=== PATIENT | male | born 1945 | race American Indian/Alaskan Native ===

== ENCOUNTER 2016-09-15 19:58 | Inpatient (IN) | payer MEDICARE ==
[2016-09-15 21:38] LABS: Basophils % (Auto) 0.8 % (0.0-1.8); Eosinophils % (Auto) 7.2 % (0.0-4.3); Hemoglobin 7.5 gm/dl (11.8-15.2); Mean Corpuscular HGB Conc 31 % (32-34); Mean Corpuscular Hemoglobin 27 pg (28-32); Mean Corpuscular Volume 85 fl (84-94); Platelet Count 287 K/mm3 (140-440); Red Blood Count 2.83 M/mm3 (3.65-5.03); Red Cell Distribution Width 19.1 % (13.2-15.2); White Blood Count 7.9 K/mm3 (4.5-11.0)
[2016-09-15] MEDS ORDERED: ZOFRAN IV ONE (21:39)
[2016-09-15 21:43] LABS: BUN/Creatinine Ratio 4.38; Chloride 91.9 mmol/L (98-107); Potassium 3.6 mmol/L (3.6-5.0)
[2016-09-15 21:49] LABS: INR 0.98 (0.87-1.13)
[2016-09-15 21:50] LABS: Partial Thromboplastin Time 30.5 Sec. (24.2-36.6)
--- NOTE | 2016-09-15 22:14 | Emergency Department Report ---
ED General Adult HPI - General Chief complaint: Weakness Stated complaint: WEAKNESS Time Seen by Provider: 09/15/16 21:07 Source: patient, family, old records reviewed (admission 2013 EGD showed gastritis without bleeding patient received 2 units of PRBCs at that time) Mode of arrival: Wheelchair Limitations: No Limitations - History of Present Illness Initial comments: 71-year-old male with a past medical history of end-stage renal disease on dialysis and multiple other medical problems presents to the hospital with complaints of low H&H. Patient apparently was seen at the ID yesterday and was called to come to the hospital for H&H of 7.2. Per previous medical record review patient has received transfusion in the past. He denies melena, hematochezia, or hematemesis. Patient complains of nausea without reports of vomiting. Compliant with dialysis Monday, Mon, and Monday. Patient is pain free. Dumpcart Driver: Dr. Arce Severity scale (0 -10): 0 - Related Data Home Medications Medication Instructions Recorded Confirmed Last Taken Aspirin [Aspirin BABY CHEW TAB] 81 mg PO QDAY 06/14/13 06/14/13 Unknown Calcitriol [Rocaltrol] 06/14/13 06/14/13 Unknown Ergocalciferol (Vitamin D2) 50,000 unit PO 06/14/13 06/14/13 Unknown Omeprazole [PriLOSEC] 40 mg PO DAILY 06/14/13 06/14/13 Unknown Previous Rx's Medication Instructions Recorded Last Taken Type Calcium Acetate [Phoslo] 667 mg PO TID #90 capsule 07/11/13 Unknown Rx Citalopram [Celexa] 20 mg PO QDAY #30 tablet 07/11/13 Unknown Rx Clopidogrel [Plavix] 75 mg PO QDAY #30 tablet 07/11/13 Unknown Rx Metoprolol [Lopressor TAB] 25 mg PO BID #60 tablet 07/11/13 Unknown Rx Simvastatin [Zocor TAB] 20 mg PO QHS #30 tablet 07/11/13 Unknown Rx Sodium Bicarbonate 650 mg PO BID #60 tablet 07/11/13 Unknown Rx Sucralfate [Carafate] 1 gm PO Q6HR #120 oral.liqd 07/11/13 Unknown Rx hydrALAZINE [Apresoline TAB] 25 mg PO Q12HR #60 tablet 12/19/13 Unknown Rx Insulin Glargine [Lantus] 8 unit SUB-Q QHS #3 ml 05/18/14 Unknown Rx Allergies Allergy/AdvReac Type Severity Reaction Status Date / Time lisinopril Allergy Angioedema Verified 06/14/13 13:57 ED Review of Systems ROS: Stated complaint: WEAKNESS Other details as noted in HPI Comment: All other systems reviewed and negative Other: Constitutional: No fevers chills Eyes: No eye pain visual changes ENT: No ear pain or throat pain Neck: Denies pain Respiratory: Denies cough wheezing shortness of breath Cardiovascular: Denies chest pain, palpitations, syncope GI: Denies abdominal pain, vomiting, diarrhea : Denies dysuria Musculoskeletal: Denies back pain, joint swelling Skin: Denies rash, lesions, erythema Neurologic: Denies headache, numbness, weakness Psychiatric: Denies suicidal ideation, hallucinations ED Past Medical Hx - Past Medical History Previous Medical History?: Yes Hx Hypertension: Yes Hx CVA: Yes Hx Heart Attack/AMI: Yes Hx Congestive Heart Failure: Yes Hx Diabetes: Yes Hx Renal Disease: Yes Hx COPD: Yes (h/o pul hypertension) Hx HIV: No - Surgical History Past Surgical History?: Yes Hx Coronary Stent: Yes Hx Breast Surgery: Yes Additional Surgical History: right below knee amputation - Social History Smoking Status: Never Smoker Substance Use Type: None - Medications Home Medications: Home Medications Medication Instructions Recorded Confirmed Last Taken Type Aspirin [Aspirin BABY CHEW TAB] 81 mg PO QDAY 06/14/13 06/14/13 Unknown History Calcitriol [Rocaltrol] 06/14/13 06/14/13 Unknown History Ergocalciferol (Vitamin D2) 50,000 unit PO 06/14/13 06/14/13 Unknown History Omeprazole [PriLOSEC] 40 mg PO DAILY 06/14/13 06/14/13 Unknown History Calcium Acetate [Phoslo] 667 mg PO TID #90 capsule 07/11/13 Unknown Rx Citalopram [Celexa] 20 mg PO QDAY #30 tablet 07/11/13 Unknown Rx Clopidogrel [Plavix] 75 mg PO QDAY #30 tablet 07/11/13 Unknown Rx Metoprolol [Lopressor TAB] 25 mg PO BID #60 tablet 07/11/13 Unknown Rx Simvastatin [Zocor TAB] 20 mg PO QHS #30 tablet 07/11/13 Unknown Rx Sodium Bicarbonate 650 mg PO BID #60 tablet 07/11/13 Unknown Rx Sucralfate [Carafate] 1 gm PO Q6HR #120 oral.liqd 07/11/13 Unknown Rx hydrALAZINE [Apresoline TAB] 25 mg PO Q12HR #60 tablet 07/11/13 Unknown Rx Insulin Glargine [Lantus] 8 unit SUB-Q QHS #3 ml 05/18/14 Unknown Rx ED Physical Exam - General Limitations: No Limitations - Other Other exam information: General: No limitations, patient is alert in no acute distress Head exam: Atraumatic, normocephalic Eyes exam: Normal appearance, ENT: Moist mucous membrane, normal oropharynx Neck exam: Normal inspection, full range of motion, no meningismus nontender Respiratory exam: Clear to auscultation bilateral, no wheezes, rales, crackles. Left chest wall dialysis access Cardiovascular: Regular rhythm with PVCs Abdomen: Soft, nondistended, and nontender, with normal bowel sounds, no rebound, or guarding Rectal: Guaiac negative brown stool Extremity: Full range of motion, right BKA Back: Normal Inspection, full range of motion, no tenderness Neurologic: Alert, oriented x3, cranial nerves intact, no motor or sensory deficit Psychiatric: normal affect, normal mood Skin: Warm, dry, intact ED Course Vital Signs 09/15/16 09/15/16 20:05 20:25 Temperature 98.5 F 98.5 F Pulse Rate 82 82 Respiratory 20 20 Rate Blood Pressure 137/87 Blood Pressure 137/87 [Right] O2 Sat by Pulse 94 96 Oximetry - Reevaluation(s) Reevaluation #1: 09/15/16 22:25 pt stable in ed. ZOfran ordered for nausea - Consultations Consultation #1: 09/15/16 22:25 Dr Ball nephrology consulted, will arrange for dialysis in hospital ED Medical Decision Making - Lab Data Result diagrams: 09/15/16 21:02 09/15/16 21:02 Lab Results 09/15/16 09/15/16 09/15/16 Range/Units 21:02 21:02 21:02 WBC 7.9 (4.5-11.0) K/mm3 RBC 2.83 L (3.65-5.03) M/mm3 Hgb 7.5 L (11.8-15.2) gm/dl Hct 24.0 L (35.5-45.6) % MCV 85 (84-94) fl MCH 27 L (28-32) pg MCHC 31 L (32-34) % RDW 19.1 H (13.2-15.2) % Plt Count 287 (140-440) K/mm3 Lymph % (Auto) 17.5 (13.4-35.0) % [place] % (Auto) 13.7 H (0.0-7.3) % Eos % (Auto) 7.2 H (0.0-4.3) % Baso % (Auto) 0.8 (0.0-1.8) % Lymph # 1.4 (1.2-5.4) K/mm3 [place] # 1.1 H (0.0-0.8) K/mm3 Eos # 0.6 H (0.0-0.4) K/mm3 Baso # 0.1 (0.0-0.1) K/mm3 Seg Neutrophils % 60.8 (40.0-70.0) % Seg Neutrophils # 4.8 (1.8-7.7) K/mm3 PT 12.9 (12.2-14.9) Sec. INR 0.98 (0.87-1.13) APTT 30.5 (24.2-36.6) Sec. Sodium 133 L (137-145) mmol/L Potassium 3.6 (3.6-5.0) mmol/L Chloride 91.9 L (98-107) mmol/L Carbon Dioxide 23 (22-30) mmol/L Anion Gap 22 mmol/L BUN 43 H (9-20) mg/dL Creatinine 9.8 H (0.8-1.5) mg/dL Estimated GFR 6 ml/min BUN/Creatinine Ratio 4.38 % Glucose 167 H (75-100) mg/dL Calcium 9.0 (8.4-10.2) mg/dL - EKG Data -: EKG Interpreted by Me (sinus rate 77 PACs) - EKG Data When compared to previous EKG there are: changes noted (06/16/2013 showed lateral T-wave inversions improved today) - Medical Decision Making No signs of acute GI bleeding at this time. Hemoglobin 7.5 and likely secondary to chronic renal disease. Patient be admitted to the hospital for transfusion. Zofran given for nausea. Dumpcart Driver has been informed. - Differential Diagnosis anemia of chronic disease, GI bleed Critical Care Time: No Critical care attestation.: If time is entered above; I have spent that time in minutes in the direct care of this critically ill patient, excluding procedure time. ED Disposition Clinical Impression: Anemia, ESRD on dialysis, Nausea Disposition: OP ADMITTED IP TO THIS HOSP Is pt being admited?: Yes Condition: Stable Time of Disposition: 22:16 (Dr marin/hosp)
[2016-09-16] MEDS ORDERED: MORPHINE IV PRN (00:42)
[2016-09-16] MEDS ORDERED: D50W (25GM) IV PRN (00:42)
[2016-09-16] MEDS ORDERED: DULCOLAX PR PRN (00:42)
[2016-09-16] MEDS ORDERED: ZOFRAN IV PRN (00:42)
[2016-09-16] MEDS ORDERED: MILK OF MAGNESIA PO PRN (00:42)
[2016-09-16] MEDS ORDERED: TYLENOL PO PRN (00:42)
--- NOTE | 2016-09-16 00:51 | History and Physical Report ---
History of Present Illness Date of examination: 09/16/16 Date of admission: 09/15/16 22:17 Chief complaint: Weakness anemia History of present illness: Agent 71-year-old male with extensive past medical history including hypertension hyperlipidemia diabetes congestive heart failure COPD follow up from a recent visit at [facility] in which he was found to be anemic and told to go to the ER. Upon presentation to the ER patient was asymptomatic however had a hemoglobin of 7.2. Patient has a history of having transfusions in the past. It has a history of anemia secondary to chronic kidney disease. Consult was made to Dr. jg guerrier and decided to transfuse patient during dialysis in the a.m. Patient at present hemodynamically stable. Stable to wait until a.m. for transfusion. Past History Past Medical History: arthritis, CAD, COPD, diabetes, ESRD, GERD, heart failure , hypertension, hyperlipidemia, renal failure. denies: anemia, cancer, dialysis , DVT, hepatitis, HIV/AIDS, hyperthyroidism, hypothyroidism, liver disease, migraines, PVD, pulmonary embolism, seizures, stroke, sarcoidosis Past Surgical History: Other (DKA) Social history: lives with family, full code. denies: smoking, alcohol abuse, prescription drug abuse, IV drug use Family history: diabetes, hypertension Medications and Allergies Allergies Allergy/AdvReac Type Severity Reaction Status Date / Time lisinopril Allergy Angioedema Verified 06/14/13 13:57 Home Medications Medication Instructions Recorded Confirmed Last Taken Type Aspirin [Aspirin BABY CHEW TAB] 81 mg PO QDAY 06/14/13 06/14/13 Unknown History Calcitriol [Rocaltrol] 06/14/13 06/14/13 Unknown History Ergocalciferol (Vitamin D2) 50,000 unit PO 06/14/13 06/14/13 Unknown History Omeprazole [PriLOSEC] 40 mg PO DAILY 06/14/13 06/14/13 Unknown History Calcium Acetate [Phoslo] 667 mg PO TID #90 capsule 07/11/13 Unknown Rx Citalopram [Celexa] 20 mg PO QDAY #30 tablet 07/11/13 Unknown Rx Clopidogrel [Plavix] 75 mg PO QDAY #30 tablet 07/11/13 Unknown Rx Metoprolol [Lopressor TAB] 25 mg PO BID #60 tablet 07/11/13 Unknown Rx Simvastatin [Zocor TAB] 20 mg PO QHS #30 tablet 07/11/13 Unknown Rx Sodium Bicarbonate 650 mg PO BID #60 tablet 07/11/13 Unknown Rx Sucralfate [Carafate] 1 gm PO Q6HR #120 oral.liqd 07/11/13 Unknown Rx hydrALAZINE [Apresoline TAB] 25 mg PO Q12HR #60 tablet 07/11/13 Unknown Rx Insulin Glargine [Lantus] 8 unit SUB-Q QHS #3 ml 05/18/14 Unknown Rx Review of Systems Constitutional: fatigue, weakness, malaise, no weight loss, no weight gain, no fever, no chills, no sweats, no lethargy Ears, nose, mouth and throat: no deferred, no ear discharge, no nasal discharge , no epistaxis, no dental pain, no mouth pain, no dysphagia, no hoarseness, no swelling in mouth Cardiovascular: no palpitations, no rapid/irregular heart beat, no syncope, no lightheadedness, no high blood pressure Respiratory: no cough, no excessive sputum, no shortness of breath, no dyspnea on exertion, no pain, no sleep apnea, no respiratory infections, no home oxygen , no other Gastrointestinal: heartburn, no abdominal pain, no nausea, no vomiting, no diarrhea, no constipation, no change in bowel habits, no hematemesis, no coffee ground emesis, no BRBPR, no melena, no hematochezia, no loss of appetite, no early satiety, no indigestion, no belching, no excessive gas, no jaundice, no early satiety, no lactose intolerance, no other Genitourinary Male: no flank pain, no urinary frequency, no urinary hesitancy, no nocturia, no incontinence Musculoskeletal: no shooting arm pain, no arm numbness/tingling, no leg numbness /tingling, no redness of joints, no morning stiffness, no muscle weakness, no muscle cramps, no myalgias, no atrophy, no limitation of motion, no prior amputations, no arthritis Integumentary: no deferred, no pruritis, no redness, no sores, no depigmentation , no acne, no dryness, no brittle nails, no hirsutism Neurological: no paralysis, no parathesias, no numbness, no tingling, no seizures, no syncope, no ataxia, no headaches, no change in speech, no sensory deficit, no loss of vision Psychiatric: no memory loss, no change in sleep habits, no sleep disturbances, no insomnia, no change in appetite, no change in libido, no suicidal ideation, no irritability, no sadness/tearfullness Endocrine: no excessive thirst, no polydipsia, no polyuria, no nocturia, no excessive sweating, no thyroid mass, no palpatations, no high blood sugars, no low blood sugars Hematologic/Lymphatic: no easy bleeding Allergic/Immunologic: no persistent infections, no angioedema, no gluten intolerance Exam - Constitutional Vitals: Temp Pulse Resp BP Pulse Ox 98 F 60 14 145/69 97 09/15/16 23:12 09/15/16 23:12 09/15/16 23:12 09/15/16 23:12 09/15/16 23:12 General appearance: Present: no acute distress, well-nourished - EENT Eyes: Present: PERRL, EOM intact ENT: hearing intact, clear oral mucosa, poor dentition - Neck Neck: Present: supple, normal ROM - Respiratory Respiratory effort: normal Respiratory: bilateral: diminished - Cardiovascular Rhythm: regular Heart Sounds: Present: S1 & S2. Absent: rub, click - Extremities Extremities: pulses symmetrical, No edema, normal temperature, normal color, Full ROM Extremity abnormal: other (right BKA) Peripheral Pulses: abnormal - Abdominal General gastrointestinal: Present: soft, non-tender, non-distended, normal bowel sounds, other (obese) Male genitourinary: Present: normal - Rectal Rectal Exam: deferred - Integumentary Integumentary: Present: clear, warm, dry - Musculoskeletal Musculoskeletal: gait normal, strength equal bilaterally - Psychiatric Psychiatric: appropriate mood/affect, intact judgment & insight - Neurologic Neurologic: CNII-XII intact, moves all extremities - Allied Health Allied health notes reviewed: PT, social work, case management Results - Labs CBC & Chem 7: 09/15/16 21:02 09/15/16 21:02 Labs: Laboratory Last Values WBC 7.9 K/mm3 (4.5-11.0) 09/15/16 21:02 RBC 2.83 M/mm3 (3.65-5.03) L 09/15/16 21:02 Hgb 7.5 gm/dl (11.8-15.2) L 09/15/16 21:02 Hct 24.0 % (35.5-45.6) L 09/15/16 21:02 MCV 85 fl (84-94) 09/15/16 21:02 MCH 27 pg (28-32) L 09/15/16 21:02 MCHC 31 % (32-34) L 09/15/16 21:02 RDW 19.1 % (13.2-15.2) H 09/15/16 21:02 Plt Count 287 K/mm3 (140-440) 09/15/16 21:02 Lymph % (Auto) 17.5 % (13.4-35.0) 09/15/16 21:02 [place] % (Auto) 13.7 % (0.0-7.3) H 09/15/16 21:02 Eos % (Auto) 7.2 % (0.0-4.3) H 09/15/16 21:02 Baso % (Auto) 0.8 % (0.0-1.8) 09/15/16 21:02 Lymph # 1.4 K/mm3 (1.2-5.4) 09/15/16 21:02 [place] # 1.1 K/mm3 (0.0-0.8) H 09/15/16 21:02 Eos # 0.6 K/mm3 (0.0-0.4) H 09/15/16 21:02 Baso # 0.1 K/mm3 (0.0-0.1) 09/15/16 21:02 Seg Neutrophils % 60.8 % (40.0-70.0) 09/15/16 21:02 Seg Neutrophils # 4.8 K/mm3 (1.8-7.7) 09/15/16 21:02 PT 12.9 Sec. (12.2-14.9) 09/15/16 21:02 INR 0.98 (0.87-1.13) 09/15/16 21:02 APTT 30.5 Sec. (24.2-36.6) 09/15/16 21:02 Sodium 133 mmol/L (137-145) L 09/15/16 21:02 Potassium 3.6 mmol/L (3.6-5.0) 09/15/16 21:02 Chloride 91.9 mmol/L (98-107) L 09/15/16 21:02 Carbon Dioxide 23 mmol/L (22-30) 09/15/16 21:02 Anion Gap 22 mmol/L 09/15/16 21:02 BUN 43 mg/dL (9-20) H 09/15/16 21:02 Creatinine 9.8 mg/dL (0.8-1.5) H 09/15/16 21:02 Estimated GFR 6 ml/min 09/15/16 21:02 BUN/Creatinine Ratio 4.38 % 09/15/16 21:02 Glucose 167 mg/dL (75-100) H 09/15/16 21:02 Calcium 9.0 mg/dL (8.4-10.2) 09/15/16 21:02 - Imaging and Cardiology EKG: image reviewed Assessment and Plan Advance Directives: Yes VTE prophylaxis?: Chemical Plan of care discussed with patient/family: Yes - Patient Problems (1) ESRD on dialysis Current Visit: Yes Status: Acute (2) Anemia Current Visit: Yes Status: Chronic Qualifiers: Anemia type: A Iron deficiency anemia type: I Vitamin B12 deficiency anemia type: V Folate deficiency anemia type: F Bone marrow failure anemia type: B Hemolytic anemia type: H Other causes of anemia: chronic disease, other Qualified Code(s): D63.8 - Anemia in other chronic diseases classified elsewhere Plan to address problem: Anemia most likely multifactorial in stage renal disease and some iron deficiency anemia. Appears to be stable enough to require transfusion received transfusion at hemodialysis. Nephrology aware we'll proceed with this transfusion tomorrow a.m. with hemodialysis. (3) Diabetes 1.5, managed as type 2 Current Visit: No Status: Chronic Plan to address problem: She will history of diabetes will treat with current insulin Levemir 8 units. Patient was given Lantus 8 units daily at bedtime continue current medication management cover with diabetic diet and when necessary sliding-scale insulin. (4) COPD (chronic obstructive pulmonary disease) Current Visit: Yes Status: Acute Qualifiers: COPD type: C Chronic bronchitis type: C Emphysema type: E Plan to address problem: Really not active at this time we'll treat with when necessary nebulizes if indicated. Otherwise hemodynamically stable. (5) CHF (congestive heart failure) Current Visit: Yes Status: Chronic Qualifiers: Congestive heart failure type: diastolic Congestive heart failure chronicity: chronic Qualified Code(s): I50.32 - Chronic diastolic (congestive ) heart failure Plan to address problem: And has questionable history of diastolic heart failure. Is not confirmed at this particular time clearly does not have any lower extremity edema does not have any shortness of breath denies any fluid in his lungs. May follow-up old records for echo. If not available may follow-up echo for documentation but could have this done at the [facility]. Not really indicated on this admission.
--- NOTE | 2016-09-16 00:58 | Admit Criteria Form ---
Admission Criteria Documentation: ANEMIA, IRON DEFICIENCY OR UNSPECIFIED Clinical Indications for Inpatient Care (Place 'X' for any and all applicable criteria): Admission is indicated for ANY ONE of the following(1)(2)(3)(4)(5)(6)(7): [X] I. Inpatient admission required rather than observation care (Also use Anemia, Iron Deficiency or Unspecified: Observation Care guideline as appropriate) because of ANY ONE of the following: [] a) Hemodynamic instability that is severe or persistent [] b) Active bleeding that cannot be rapidly controlled [] c) CVS symptoms (i.e., dyspnea, chest pain, heart failure) that are severe or persistent [] d) Neurologic symptoms (i.e., cognitive impairment, recurrent syncope or near syncope) that are severe or persistent [] e) Cardiac arrhythmias of immediate concern [] f) Acute peripheral ischemia (e.g., pulseless, cool, mottled, or cyanotic extremity) [] g) High-risk low platelet count [] h) Acute renal failure [] i) Ongoing transfusion for blood loss (greater than 2 units) [] j) IV fluid to replace significant ongoing (eg, >24 hours) losses (> 3 L/m2 per day) [] k) Pulmonary artery catheter monitoring [] l) Supplemental oxygen or respiratory treatments for over 24 hours that are performable only in acute inpatient setting [] m) Immediate inpatient surgery [X] n) Other condition, treatment or monitoring requiring inpatient admission [] II Active massive hemorrhage [] III. Active hemolysis with rapidly progressive anemia [A](6) Extended stay beyond goal length of stay may be needed for (17)(18) []a) Diagnosed cause of anemia requiring longer hospitalization (eg, active GI bleeding, immune hemolysis requiring electrophoresis, complications of malignancy requiring acute care []b) Continued emergent anemia indicators (23) []c) Transfusion reactions []d) Associated leukopenia or thrombocytopenia needing inpatient care []e) Active comorbidities (eg, renal failure, heart failure) The original [facility] Care Guidelines content created by [facility] Care Guidelines has been revised. The portions of the content which have been revised are identified through the use of italic text or in bold. [facility] Guidelines has neither reviewed nor approved the modified material. All other unmodified content is copyright [facility] Care Guidelines. Please see references footnoted in the original [facility] edition 2016 Admission Criteria Met: Yes
[2016-09-16] MEDS: CARAFATE PO SCH ×2 (06:23→18:54)
[2016-09-16] MEDS ORDERED: PROCRIT IV PRN (09:49)
[2016-09-16] MEDS ORDERED: LOVENOX SUB-Q SCH (10:00)
[2016-09-16] MEDS ORDERED: PEPCID PO SCH (10:00)
[2016-09-16] MEDS ORDERED: BABY ASPIRIN PO SCH (10:00)
[2016-09-16] MEDS ORDERED: celeXA PO SCH (10:00)
[2016-09-16] MEDS ORDERED: PLAVIX PO SCH (10:00)
--- NOTE | 2016-09-16 10:24 | Consultation ---
History of Present Illness - Reason for Consult Consult date: 09/16/16 end stage renal disease - History of Present Illness patient with h/o ESRD on HD every MWF last treatment was Monday was sent to the ED due to low Hgb, when rechecked in the ED Hgb was 7.7, he has h/o gastritis and required transfusion in the past. when seen he denies nausea, vomiting or blood in the stool. renal consult was requested for ESRD and HD management Past History Past Medical History: arthritis, CAD, COPD, diabetes, ESRD, GERD, heart failure , hypertension, hyperlipidemia, renal failure. denies: anemia, cancer, dialysis , DVT, hepatitis, HIV/AIDS, hyperthyroidism, hypothyroidism, liver disease, migraines, PVD, pulmonary embolism, seizures, stroke, sarcoidosis Past Surgical History: Other (DKA) Social history: lives with family, full code. denies: smoking, alcohol abuse, prescription drug abuse, IV drug use Family history: diabetes, hypertension Medications and Allergies Allergies Allergy/AdvReac Type Severity Reaction Status Date / Time lisinopril Allergy Angioedema Verified 06/14/13 13:57 Home Medications Medication Instructions Recorded Confirmed Last Taken Type Aspirin [Aspirin BABY CHEW TAB] 81 mg PO QDAY 06/14/13 06/14/13 Unknown History Calcitriol [Rocaltrol] 06/14/13 06/14/13 Unknown History Ergocalciferol (Vitamin D2) 50,000 unit PO 06/14/13 06/14/13 Unknown History Omeprazole [PriLOSEC] 40 mg PO DAILY 06/14/13 06/14/13 Unknown History Calcium Acetate [Phoslo] 667 mg PO TID #90 capsule 07/11/13 Unknown Rx Citalopram [Celexa] 20 mg PO QDAY #30 tablet 07/11/13 Unknown Rx Clopidogrel [Plavix] 75 mg PO QDAY #30 tablet 07/11/13 Unknown Rx Metoprolol [Lopressor TAB] 25 mg PO BID #60 tablet 07/11/13 Unknown Rx Simvastatin [Zocor TAB] 20 mg PO QHS #30 tablet 07/11/13 Unknown Rx Sodium Bicarbonate 650 mg PO BID #60 tablet 07/11/13 Unknown Rx Sucralfate [Carafate] 1 gm PO Q6HR #120 oral.liqd 07/11/13 Unknown Rx hydrALAZINE [Apresoline TAB] 25 mg PO Q12HR #60 tablet 07/11/13 Unknown Rx Insulin Glargine [Lantus] 8 unit SUB-Q QHS #3 ml 05/18/14 Unknown Rx Active Meds: Active Medications Acetaminophen (Tylenol) 650 mg PO Q4H PRN PRN Reason: Pain MILD(1-3)/Fever >100.5/PAUL Aspirin (Baby Aspirin) 81 mg PO QDAY [facility] Bisacodyl (Dulcolax) 10 mg PA QDAY PRN PRN Reason: Constipation unrelieved by [facility] Calcium Acetate (Phoslo) 667 mg PO TIDWM [facility] Citalopram Hydrobromide (Celexa) 20 mg PO QDAY [facility] Clopidogrel Bisulfate (Plavix) 75 mg PO QDAY [facility] Dextrose (D50w (25gm)) 50 ml IV PRN PRN PRN Reason: Hypoglycemia Enoxaparin Sodium (Lovenox) 30 mg SUB-Q QDAY [facility] Epoetin Srinivas (Procrit) 10,000 unit IV FANY PRN PRN Reason: hemodialysis Famotidine (Pepcid) 20 mg PO QAM [facility] Hydralazine HCl (Apresoline) 25 mg PO Q12HR [facility] Insulin Detemir (Levemir) 8 units SUB-Q QHS [facility] Magnesium Hydroxide (Milk Of Magnesia) 30 ml PO Q4H PRN PRN Reason: Constipation Metoprolol Tartrate (Lopressor) 25 mg PO BID [facility] Morphine Sulfate (Morphine) 2 mg IV Q4H PRN PRN Reason: Pain, Moderate (4-6) Ondansetron HCl (Zofran) 4 mg IV Q8H PRN PRN Reason: N/V unrelieved by Reglan Simvastatin (Zocor) 20 mg PO QHS [facility] Sodium Bicarbonate (Sodium Bicarbonate) 650 mg PO BID [facility] Sucralfate (Carafate) 1 gm PO Q6HR [facility] Last Admin: 09/16/16 06:23 Dose: 1 gm Review of Systems All systems: negative (weakness) Exam - Vital Signs Vital signs: Vital Signs Temp Pulse Resp BP Pulse Ox 98.5 F 82 20 137/87 94 09/15/16 20:05 09/15/16 20:05 09/15/16 20:05 09/15/16 20:05 09/15/16 20:05 - General Appearance General appearance: well-developed, well-nourished EENT: ATNC, PERRL, mucous membranes moist Neck: Present: neck supple. Absent: JVD/HJR Respiratory: Clear to Ascultation, Normal Exam Heart: regular, S1S2 Gastrointestinal: Present: normoactive bowel sounds, obese. Absent: tenderness , distended Integumentary: no rash, warm and dry Neurologic: no focal deficit, no asterixis, alert and oriented x3 Musculoskeletal: Present: other (no edema in BLE) Psychiatric: mood/affect appropriate, cooperative Results - Lab Results 09/15/16 21:02 09/15/16 21:02 Most recent lab results Calcium 9.0 mg/dL (8.4-10.2) 09/15/16 21:02 Assessment and Plan ESRD on HD HD today for clearance and volume removal will assess dialysis needs daily strict I&O daily weights renal diet HTN cont current meds UF with HD Secondary hyperparathyroidism Phos in AM Anemia in CKD Epogen 10,000 units with HD Iron panel in AM
[2016-09-16] MEDS: PHOSLO PO SCH ×2 (11:45→13:17)
[2016-09-16 12:03] LABS: Hematocrit 22.5 % (35.5-45.6); Hemoglobin 6.9 gm/dl (11.8-15.2)
[2016-09-16] MEDS ORDERED: NACL 0.9% 500 ML 500 ML IV NR (13:54)
[2016-09-16] MEDS ORDERED: NACL 0.9% 1000 ML 100 ML IV PRN (15:14)
[2016-09-16] MEDS ORDERED: HEPARIN IV PRN (15:14)
--- NOTE | 2016-09-16 17:51 | Progress Note ---
Assessment and Plan Assessment and plan: End-stage renal disease on hemodialysis - Nephrology consulted and will have dialysis today Anemia - We'll be given 2 units of blood during dialysis Disposition - We'll be discharging tomorrow morning History Interval history: Patient didn't have any complaints Hospitalist Physical - Physical exam Narrative exam: Not in cardiopulmonary distress. The patient appeared well nourished and normally developed. Vital signs as documented. Head exam is unremarkable. No scleral icterus . Neck is without jugular venous distension, thyromegaly, or carotid bruits. Lungs are clear to auscultation. Cardiac exam reveals regular rate and Rhythm. First and second heart sounds normal. No murmurs, rubs or gallops. Abdominal exam reveals normal bowel sounds, no masses, no organomegaly and no aortic enlargement. Extremities are nonedematous and both femoral and pedal pulses are normal. BUTTONER: Alert and oriented 3. No focal weakness. - Constitutional Vitals: Temp Pulse Resp BP Pulse Ox 98.3 F 70 16 153/90 95 09/16/16 16:35 09/16/16 17:15 09/16/16 16:35 09/16/16 17:15 09/16/16 08:54 General appearance: Present: no acute distress, well-nourished Results - Labs CBC & Chem 7: 09/16/16 11:34 09/15/16 21:02 Labs: Laboratory Last Values WBC 7.9 K/mm3 (4.5-11.0) 09/15/16 21:02 RBC 2.83 M/mm3 (3.65-5.03) L 09/15/16 21:02 Hgb 6.9 gm/dl (11.8-15.2) L 09/16/16 11:34 Hct 22.5 % (35.5-45.6) L 09/16/16 11:34 MCV 85 fl (84-94) 09/15/16 21:02 MCH 27 pg (28-32) L 09/15/16 21:02 MCHC 31 % (32-34) L 09/15/16 21:02 RDW 19.1 % (13.2-15.2) H 09/15/16 21:02 Plt Count 287 K/mm3 (140-440) 09/15/16 21:02 Lymph % (Auto) 17.5 % (13.4-35.0) 09/15/16 21:02 Vance % (Auto) 13.7 % (0.0-7.3) H 09/15/16 21:02 Eos % (Auto) 7.2 % (0.0-4.3) H 09/15/16 21:02 Baso % (Auto) 0.8 % (0.0-1.8) 09/15/16 21:02 Lymph # 1.4 K/mm3 (1.2-5.4) 09/15/16 21:02 Vance # 1.1 K/mm3 (0.0-0.8) H 09/15/16 21:02 Eos # 0.6 K/mm3 (0.0-0.4) H 09/15/16 21:02 Baso # 0.1 K/mm3 (0.0-0.1) 09/15/16 21:02 Seg Neutrophils % 60.8 % (40.0-70.0) 09/15/16 21:02 Seg Neutrophils # 4.8 K/mm3 (1.8-7.7) 09/15/16 21:02 PT 12.9 Sec. (12.2-14.9) 09/15/16 21:02 INR 0.98 (0.87-1.13) 09/15/16 21:02 APTT 30.5 Sec. (24.2-36.6) 09/15/16 21:02 Sodium 133 mmol/L (137-145) L 09/15/16 21:02 Potassium 3.6 mmol/L (3.6-5.0) 09/15/16 21:02 Chloride 91.9 mmol/L (98-107) L 09/15/16 21:02 Carbon Dioxide 23 mmol/L (22-30) 09/15/16 21:02 Anion Gap 22 mmol/L 09/15/16 21:02 BUN 43 mg/dL (9-20) H 09/15/16 21:02 Creatinine 9.8 mg/dL (0.8-1.5) H 09/15/16 21:02 Estimated GFR 6 ml/min 09/15/16 21:02 BUN/Creatinine Ratio 4.38 % 09/15/16 21:02 Glucose 167 mg/dL (75-100) H 09/15/16 21:02 Calcium 9.0 mg/dL (8.4-10.2) 09/15/16 21:02 Blood Type B NEGATIVE 09/16/16 04:40 Antibody Screen Negative 09/16/16 04:40 Crossmatch See Detail 09/16/16 04:40
[2016-09-16] MEDS: APRESOLINE PO SCH ×2 (18:52→21:42)
[2016-09-16] MEDS: LOPRESSOR PO SCH ×2 (18:53→21:43)
[2016-09-16] MEDS: SODIUM BICARBONATE PO SCH ×2 (18:53→21:42)
[2016-09-16] MEDS ORDERED: ZOCOR PO SCH (22:00)
[2016-09-16] MEDS ORDERED: LEVEMIR SUB-Q SCH (22:00)
[2016-09-17] MEDS: CARAFATE PO SCH ×2 (00:33→05:56)
[2016-09-17 07:22] LABS: Basophils % (Auto) 0.7 % (0.0-1.8); Eosinophils % (Auto) 5.4 % (0.0-4.3); Hemoglobin 8.7 gm/dl (11.8-15.2); Mean Corpuscular HGB Conc 32 % (32-34); Mean Corpuscular Hemoglobin 27 pg (28-32); Mean Corpuscular Volume 84 fl (84-94); Platelet Count 214 K/mm3 (140-440); Red Cell Distribution Width 17.4 % (13.2-15.2); White Blood Count 8.9 K/mm3 (4.5-11.0)
[2016-09-17 07:55] LABS: BUN/Creatinine Ratio 3.12; Calcium 8.2 mg/dL (8.4-10.2); Chloride 94.5 mmol/L (98-107); Phosphorous 4.3 mg/dL (2.5-4.5); Potassium 3.5 mmol/L (3.6-5.0)
[2016-09-17] MEDS: PHOSLO PO SCH ×2 (08:15→11:03)
--- NOTE | 2016-09-17 09:28 | Discharge Summary ---
Providers - Providers Date of Admission: 09/15/16 22:17 Date of discharge: 09/17/16 Attending physician: LARY JULIAN MD 09/15/16 22:23 Consult to Physician [CONS] Urgent Consulting Provider: SANDY CARLISLE Reason For Exam: esrd Notified:: y Primary care physician: HECTOR BRANDT Hospitalization Reason for admission: ESRD, anemia of chronic disease Condition: Stable Disposition: DISCHARGED TO HOME OR SELFCARE Time spent for discharge: 31 minutes Core Measure Documentation - Palliative Care Palliative Care/ Comfort Measures: Not Applicable - Core Measures Any of the following diagnoses?: none Exam - Physical Exam Narrative exam: Not in cardiopulmonary distress. The patient appeared well nourished and normally developed. Vital signs as documented. Head exam is unremarkable. No scleral icterus . Neck is without jugular venous distension, thyromegaly, or carotid bruits. Lungs are clear to auscultation. Cardiac exam reveals regular rate and Rhythm. First and second heart sounds normal. No murmurs, rubs or gallops. Abdominal exam reveals normal bowel sounds, no masses, no organomegaly and no aortic enlargement. Extremities Right BKA. ORE TESTER: Alert and oriented 3. No focal weakness. - Constitutional Vitals: Temp Pulse Resp BP Pulse Ox 98.3 F 68 20 126/68 96 09/17/16 08:15 09/17/16 08:15 09/17/16 08:15 09/17/16 08:15 09/17/16 08:15 Plan Diet: low cholesterol, low salt, diabetic, renal Follow up with: HECTOR BRANDT MD [Primary Care Provider] - 7 Days
--- NOTE | 2016-09-17 09:46 | Progress Note ---
Assessment and Plan - Patient Problems (1) ESRD on dialysis Current Visit: Yes Status: Acute Plan to address problem: Received hemodialysis yesterday for UF and clearance Received transfusion with 2 units of PRBC's yesterday Fluid restriction of 32 ounces per day Monitor I/O's Obtain daily weights Renally dose medications Renal plan reviewed with Dr. Nguyen Discharging home today (2) Anemia Current Visit: Yes Status: Chronic Qualifiers: Anemia type: A Iron deficiency anemia type: I Vitamin B12 deficiency anemia type: V Folate deficiency anemia type: F Bone marrow failure anemia type: B Hemolytic anemia type: H Other causes of anemia: chronic disease, other Qualified Code(s): D63.8 - Anemia in other chronic diseases classified elsewhere Plan to address problem: Received 2 units of PRBC's transfusion yesterday and Epogen with HD (3) Hypertension Current Visit: No Status: Chronic Qualifiers: Hypertension type: H Plan to address problem: Controlled on Hydralazine and Metoprolol (4) Diabetes 1.5, managed as type 2 Current Visit: No Status: Chronic Plan to address problem: On insulin as per Primary team Subjective Date of service: 09/17/16 Principal diagnosis: ESRD Interval history: Patient seen lying in bed. States feeling better. Going home today. Objective - Vital Signs Vital signs: Vital Signs - 12hr 09/16/16 09/17/16 09/17/16 22:00 00:13 08:15 Temperature 98.9 F 98.3 F Pulse Rate [ 76 Left Brachial] Pulse Rate [ 76 74 68 Left Radial] Respiratory 18 18 20 Rate Respiratory 18 Rate [ Generalized] Blood Pressure 124/58 126/68 [Left Arm] O2 Sat by Pulse 96 95 96 Oximetry - General Appearance General appearance: well-developed, appears stated age EENT: ATNC, PERRL, hearing intact, vision intact Neck: no JVD, supple Respiratory: Present: Clear to Ascultation Cardiology: regular, S1S2 Gastrointestinal: normoactive bowel sounds Integumentary: warm and dry Neurologic: alert and oriented x3 Musculoskeletal: other (No edema. Right AVF has sutures to incision site noted) Psychiatric: cooperative - Lab 09/17/16 06:45 09/17/16 06:45 Most recent lab results Calcium 8.2 mg/dL (8.4-10.2) L 09/17/16 06:45 Phosphorus 4.3 mg/dL (2.5-4.5) 09/17/16 06:45
[2016-09-17] MEDS: SODIUM BICARBONATE PO SCH (11:01)
[2016-09-17] MEDS: APRESOLINE PO SCH (11:02)
[2016-09-17] MEDS: LOPRESSOR PO SCH (11:02)
[2016-09-17 16:16] VITALS: BP 130/68
== END 2016-09-17 16:43 | disposition home or self-care (01) | DRG 291 ==
LOC: ED 19:58 → 3A 22:17
PROVIDERS: ADMIT Internal Medicine; ATTEND Internal Medicine
PROC: 30233N1 Transfusion of Nonautologous Red Blood Cells into Peripheral Vein, Percutaneous Approach (ICD-10-PCS; principal; 2016-09-16)
PROC: 5A1D00Z (ICD-10-PCS; 2016-09-16)
DX: I13.2 Hypertensive heart and chronic kidney disease with heart failure and with stage 5 chronic kidney disease, or end stage renal disease (principal); N18.6 End stage renal disease; B20 Human immunodeficiency virus [HIV] disease; I50.32 Chronic diastolic (congestive) heart failure; Z99.2 Dependence on renal dialysis; E78.5 Hyperlipidemia, unspecified; J44.9 Chronic obstructive pulmonary disease, unspecified; I25.10 Atherosclerotic heart disease of native coronary artery without angina pectoris; K21.9 Gastro-esophageal reflux disease without esophagitis; Z83.3 Family history of diabetes mellitus; Z82.49 Family history of ischemic heart disease and other diseases of the circulatory system; Z88.8 Allergy status to other drugs, medicaments and biological substances; Z79.82 Long term (current) use of aspirin; Z79.4 Long term (current) use of insulin; E11.22 Type 2 diabetes mellitus with diabetic chronic kidney disease; D63.1 Anemia in chronic kidney disease
CPT/HCPCS: 36415; 36430; 80048; 82271; 82728; 82962; 83550; 84100; 85018; 85025; 85610; 85730; 86850; 86900; 86901; 86920; 93005; 93010; 96374; J0885; J1644; J1650; J1818; J2405; P9016